=== PATIENT | female | born 1980 | race Caucasian/White ===

== ENCOUNTER 2023-01-08 15:42 | Outpatient (CLI) | payer OTHER, SELFPAY ==
--- NOTE | 2023-01-08 15:15 | DI.RAD_ITS ---
Exam(s) XR KNEE LT 3V AP,LAT,LALITA EXAM: XR KNEE LT 3V AP,LAT,LALITA CLINICAL HISTORY: knee pain. TECHNIQUE: 2D digital imaging was performed of the left knee. Three images were obtained. Merchant ,AP and lateral views were obtained. COMPARISON: No exams were available for comparison FINDINGS: BONES: No acute fracture is present. No bony destructive lesion is seen. JOINTS: The knee is normally aligned. Degenerative changes are seen in the knee with joint space narr owing and osteophytes in the femoral tibial joint. There is a small joint effusion. SOFT TISSUE: Normal. IMPRESSION: Mild degenerative changes of the knee. DATA REPOSITORY: RADIATION DOSE DELIVERED:
== END 2023-01-08 15:43 | disposition home or self-care (01) ==
LOC: DIORS 15:42
PROVIDERS: PCP Registered Nurse Diabetes Educator; Visit Provider Student in an Organized Health Care Education/Training Program
DX: M17.12 Unilateral primary osteoarthritis, left knee (principal)
CPT/HCPCS: 73562

== ENCOUNTER → 2023-01-31 00:57 | Outpatient (CLI) | payer OTHER, SELFPAY ==
--- NOTE | 2023-01-31 08:30 | DI.MRI_ITS ---
Exam(s) MR LOWER JOINT LT WO EXAM: MR LOWER JOINT LT WO CLINICAL HISTORY: ? MEDIAL MENISCAL TEAR,LT KNEE PAIN,M25.562. TECHNIQUE: Multiplanar multisequence MRI was performed. COMPARISON: CR XR KNEE LT 3V AP,LAT,LALITA from 01/08/2023 FINDINGS: BONES: There is no fracture or contusion pattern. JOINTS: There are degenerative changes seen in the knee with thinning of the articular cartilage in o steophytes present. The findings are most marked in the medial femoral tibial and patellofemoral jesús nt. There is a moderate joint effusion. TENDONS: Extensor mechanism: Unremarkable. Medial retinaculum: Unremarkable. Lateral retinaculum: Unremarkable. Popliteus: Unremarkable. MUSCLES: Unremarkable. MENISCI: There is intermediate signal seen in the region of the root of the medial meniscus which may represent degeneration and/or tear. The lateral meniscus is unremarkable. SOFT TISSUES: There is fluid seen in the prepatellar soft tissues. LIGAMENTS: Anterior Cruciate: Unremarkable. Posterior Cruciate: Unremarkable. Medial Collateral:There is a small amount of fluid around the medial collateral ligament which may re present a sprain. No evidence of a tear. Lateral Collateral: Unremarkable. OTHER: IMPRESSION: 1. Left knee arthrosis. 2. Moderate joint effusion. 3. 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 Tear considered less likely. 4. Possible sprain in the medial collateral ligament. No evidence of a ligament tear. DATA REPOSITORY:
== END ==
PROVIDERS: PCP Registered Nurse Diabetes Educator; Visit Provider Student in an Organized Health Care Education/Training Program
DX: M17.12 Unilateral primary osteoarthritis, left knee (principal); M25.462 Effusion, left knee
CPT/HCPCS: 73721

== ENCOUNTER 2023-08-19 15:30 | Outpatient (CLI) | payer OTHER, SELFPAY ==
--- NOTE | 2023-08-19 14:15 | DI.RAD_ITS ---
Exam(s) XR KNEE RT 3V AP,LAT,LALITA EXAM: XR KNEE RT 3V AP,LAT,LALITA CLINICAL HISTORY: RIGHT KNEE PAIN. TECHNIQUE: 2D digital imaging was performed. Three views. COMPARISON: MR MR LOWER JOINT LT WO from 01/31/2023 FINDINGS: BONES: No acute fracture is present. No bony destructive lesion is seen. JOINTS: The knee is normally aligned. No joint effusion is seen. Mild narrowing of the medial femor al tibial joint space. No significant periarticular spurring. SOFT TISSUE: Normal. IMPRESSION: Mild degenerative changes. DATA REPOSITORY: RADIATION DOSE DELIVERED:
== END 2023-08-19 15:31 | disposition home or self-care (01) ==
LOC: DIORS 15:33
PROVIDERS: PCP Registered Nurse Diabetes Educator; Visit Provider Student in an Organized Health Care Education/Training Program
DX: M25.561 Pain in right knee (principal)
CPT/HCPCS: 73562